=== PATIENT | male | born 1990 | race Caucasian/White ===

== ENCOUNTER 2017-01-23 01:14 | Emergency (ER) | payer BC | END 2017-01-23 03:45 | LOC: ER1 01:14 | DX: S01.81XA Laceration without foreign body of other part of head, initial encounter (principal); S00.11XA Contusion of right eyelid and periocular area, initial encounter; S80.212A Abrasion, left knee, initial encounter; W18.39XA Other fall on same level, initial encounter; F17.210 Nicotine dependence, cigarettes, uncomplicated; Y92.481 Parking lot as the place of occurrence of the external cause; Z23 Encounter for immunization | CPT/HCPCS: 90471; 90715; 96365; 99284; J0690; J7050 ==